=== PATIENT | male | born 1990 | race Caucasian/White ===

== ENCOUNTER 2022-10-09 08:37 | Emergency (ER) | payer MEDICAID ==
[~2022-10-09] VITALS: Ht 190.5 cm; Wt 106.2 kg
[2022-10-09 09:02] VITALS: BP 140/82
[2022-10-09] MEDS ORDERED: IBUP-1986 PO (09:41)
[2022-10-09] MEDS ORDERED: ketorolac trometh inj. 60 MG/2 ML VIAL IM ONE (09:45)
== END 2022-10-09 10:05 | disposition home or self-care (01) ==
LOC: ER 08:38
DX: S83.8X1A Sprain of other specified parts of right knee, initial encounter (principal); X58.XXXA Exposure to other specified factors, initial encounter; Y93.89 Activity, other specified; Y92.89 Other specified places as the place of occurrence of the external cause; Y99.8 Other external cause status
CPT/HCPCS: 29530; 73564; 96372; 99283; J1885